=== PATIENT | female | born 1975 | race African-American/Black ===

== ENCOUNTER 2019-07-02 16:10 | Emergency (ER) | payer OTHER ==
[~2019-07-02] VITALS: Ht 162.6 cm; Wt 91.0 kg
[2019-07-02 20:30] VITALS: BP 175/95
== END 2019-07-02 21:43 | disposition left against medical advice (07) ==
LOC: ER 16:10
DX: I10 Essential (primary) hypertension (principal); Z53.21 Procedure and treatment not carried out due to patient leaving prior to being seen by health care provider

== ENCOUNTER 2019-07-25 10:35 | Emergency (ER) | payer OTHER | END 2019-07-25 11:37 | disposition left against medical advice (07) | LOC: ER 10:35 | DX: Z53.21 Procedure and treatment not carried out due to patient leaving prior to being seen by health care provider (principal) ==

== ENCOUNTER 2019-08-03 10:03 | Emergency (ER) | payer OTHER ==
[~2019-08-03] VITALS: Ht 162.6 cm; Wt 93.0 kg
[2019-08-03] MEDS ORDERED: KETOROLAC 30MG/ML VIAL IM ONE (11:15)
[2019-08-03 11:24] VITALS: BP 185/96
== END 2019-08-03 11:57 | disposition home or self-care (01) ==
LOC: ER 10:03
DX: R10.84 Generalized abdominal pain (principal); M54.5 Low back pain; I10 Essential (primary) hypertension; F17.210 Nicotine dependence, cigarettes, uncomplicated; Z98.890 Other specified postprocedural states; W03.XXXA Other fall on same level due to collision with another person, initial encounter; Y93.89 Activity, other specified; Y92.89 Other specified places as the place of occurrence of the external cause
CPT/HCPCS: 81025; 96372; 99283; J1885

== ENCOUNTER 2023-04-20 18:31 | Emergency (ER) | payer OTHER ==
[~2023-04-20] VITALS: Ht 162.6 cm; Wt 90.0 kg
[2023-04-20 18:39] VITALS: BP 199/91; PULSE 77; RESP 18; TEMP 98.5; O2SAT 98
== END 2023-04-21 01:33 | disposition left against medical advice (07) ==
LOC: ER 22:10
DX: Z53.21 Procedure and treatment not carried out due to patient leaving prior to being seen by health care provider (principal)
CPT/HCPCS: 99281

== ENCOUNTER 2023-04-21 07:10 | Emergency (ER) | payer OTHER ==
[~2023-04-21] VITALS: Ht 162.6 cm; Wt 90.0 kg
[2023-04-21 07:21] VITALS: TEMP 98.3; O2SAT 100
[2023-04-21 07:59] VITALS: BP 173/84; PULSE 53; RESP 19
== END 2023-04-21 08:35 | disposition home or self-care (01) ==
LOC: ER 07:10
DX: I10 Essential (primary) hypertension (principal); Z98.890 Other specified postprocedural states
CPT/HCPCS: 99281; Z7610

== ENCOUNTER 2025-06-18 14:50 | Emergency (ER) | payer MEDICAID, OTHER ==
[~2025-06-18] VITALS: Ht 162.6 cm; Wt 91.0 kg
[2025-06-18 14:53] VITALS: O2SAT 100
[2025-06-18] MEDS ORDERED: CLINDAMYCIN 600 MG in DEXTROSE 5% WATER 50 ML IV ONE (15:30)
[2025-06-18 16:01] LABS: BASOPHILS % 0.9 % (0.0-2.0); EOSINOPHILS % 0.4 % (0.0-5.0); HEMATOCRIT. 36.5 % (36.0-48.0); HEMOGLOBIN. 12.1 g/dL (12.0-16.0); LYMPHOCYTES % 13.6 % (20.0-50.0); MEAN PLATELET VOLUME 10.5 fl (7.4-10.4); MONOCYTES % 12.5 % (2.0-8.0); NEUTROPHILS % 72.6 % (40.0-76.0); PLATELET 209 x1000/uL (130-400); RED BLOOD CELL COUNT 4.13 mill/uL (4.2-5.4); RED CELL DISTRIBUTION WIDTH 13.2 % (11.6-14.6)
[2025-06-18] MEDS: MORPHINE SULFATE 4 MG/ML INJ (FOR IV/IM USE) IV ONE (16:04)
[2025-06-18] MEDS: CLINDAMYCIN 600MG PREMIX 50 ML IV SCH (16:05)
[2025-06-18] MEDS: ONDANSETRON HCL 4MG/2ML INJ IV ONE (16:05)
[2025-06-18] MEDS: LOSARTAN 100 MG TABLET PO STA (16:05)
[2025-06-18 16:24] LABS: CREATININE 0.8 mg/dL (0.6-1.0); UREA NITROGEN BLOOD 9 mg/dL (9-23)
[2025-06-18] MEDS ORDERED: OXYC-100 MT (18:38)
[2025-06-18] MEDS ORDERED: CLIN-194 MT (18:38)
[2025-06-18] MEDS ORDERED: ONDA-239 PO (18:38)
[2025-06-18 19:07] VITALS: BP 199/94; PULSE 85; RESP 18; TEMP 37.1; O2SAT 98
== END 2025-06-18 19:15 | disposition home or self-care (01) ==
LOC: ER 14:50
DX: K04.7 Periapical abscess without sinus (principal); I11.9 Hypertensive heart disease without heart failure
CPT/HCPCS: 80048; 85025; 36415; 93005; 96365; 96375; 99285; J2405; J2270; J3490; Z7610 ×2; J7060